=== PATIENT | female | born 1985 | race Caucasian/White ===

== ENCOUNTER 2016-06-04 18:18 | Emergency (ER) | payer OTHER ==
[~2016-06-04] VITALS: Ht 154.9 cm; Wt 79.4 kg
[~2016-06-04 18:18] MED LIST: No Home Medications
[2016-06-04 19:13] LABS: BASO % 0.6 % (0.0-1.0); EOS # 0.3 K/mm3 (0.0-0.50); LARGE UNSTAINED CELL # 0.2 K/mm3 (0.0-0.4); LYMPH # 2.9 K/mm3 (1.5-4.5); LYMPH % 32.4 % (24.0-44.0); MEAN CORPUSCULAR HEMOGLOBIN 31.6 pg (27.0-33.0); MEAN CORPUSCULAR HGB CONC 33.5 g/dl (32.0-36.5); MEAN CORPUSCULAR VOLUME 94.2 fl (80.0-96.0); MONO # 0.3 K/mm3 (0.0-0.8); MONO % 3.9 % (0.0-5.0); NEUTROPHILS # 4.8 K/mm3 (1.8-7.7); NEUTROPHILS % 57.1 % (36.0-66.0); PLATELET COUNT, AUTOMATED 347 k/mm3 (150-450); RED CELL DISTRIBUTION WIDTH 14.1 % (11.5-14.5); WHITE BLOOD COUNT 8.4 K/mm3 (4.0-10.0)
--- NOTE | 2016-06-04 21:10 | REPUSA ---
CLINICAL HISTORY: Bleeding. TECHNIQUE: Realtime sonographic images were obtained in multiple projections. COMMENTS: LMP: 04/27/2016; GA by LMP 5 weeks 3 days. The uterine size measures 8.0 cm in CC x 3.6 cm in AP x 4.5 cm in transverse. No gestational sac is seen. The right ovary measures 2.8 cm in CC x 1.6 cm in AP x 1.7 cm in transverse. The left ovary measures 2.7 cm in CC x 1.6 cm in AP x 1.7 cm in transverse. Both ovaries are free of masses. IMPRESSION No evidence of an IUP. Fibroid uterus. Thank you for your kind referral of this patient. We appreciate the opportunity to participate in thi s patient's care.
[2016-06-04 21:36] VITALS: BP 128/56
== END 2016-06-04 21:49 | disposition home or self-care (01) ==
LOC: M ED 19:24
DX: O20.0 Threatened abortion (principal); Z3A.01 Less than 8 weeks gestation of pregnancy

== ENCOUNTER → 2016-09-06 | Outpatient (CLI) | payer OTHER ==
[~2016-09-06] MED LIST changes: +ISOVUE-370 76% 100ML VIAL (Q9967) As Ordered ONE
--- NOTE | 2016-09-06 13:43 | REP ---
HYSTEROSALPINGOGRAM: The patient's cervix was catheterized and contrast was injected by the referring clinician. I performed fluoroscopy and obtained spot radiographs. Uterine cavity is free of filling defect. No contour abnormalities are seen. There is free passage of contrast through the right fallopian tube, which is not dilated. There is free intraperitoneal spillage on the right indicating patency of the right fallopian tube. However, the left fallopian tube is significantly dilated with no free intraperitoneal spillage on the left side. Findings are consistent with obstruction of the distal left fallopian tube with moderate to severe hydrosalpinx. IMPRESSION: Patent right fallopian tube. Obstructed left fallopian tube with moderate to severe left hydrosalpinx. 46 seconds fluoroscopy time utilized for the procedure. Signed by Gilles Lawson MD 09/06/2016 05:03 P
== END ==
LOC: M RADPRO 11:07
PROVIDERS: ATTEND Obstetrics & Gynecology
DX: N70.11 Chronic salpingitis (principal)
CPT/HCPCS: 58340; 74740; Q9967

== ENCOUNTER 2016-10-25 11:56 | Day surgery (SDC) | payer OTHER ==
[~2016-10-25] VITALS: Ht 185.4 cm; Wt 70.3 kg
[~2016-10-25 11:56] MED LIST changes: -ISOVUE-370 76% 100ML VIAL (Q9967) As Ordered ONE
[2016-10-25] MEDS ORDERED: LR 1,000 ML IV SCH ×4 (12:00→16:30)
[2016-10-25] MEDS ORDERED: LR 1,000 ML IV ONE (12:00)
[2016-10-25 12:20] LABS: MEAN CORPUSCULAR HEMOGLOBIN 31.5 pg (27.0-33.0); MEAN CORPUSCULAR HGB CONC 33.4 g/dl (32.0-36.5); MEAN CORPUSCULAR VOLUME 94.2 fl (80.0-96.0); WHITE BLOOD COUNT 7.4 K/mm3 (4.0-10.0)
[2016-10-25 12:43] LABS: CONTROL LINE HCG INT CTR LINE PRESENT
[2016-10-25] MEDS ORDERED: MIDAZOLAM INJ 2 MG/2 ML VIAL (J2250) As Ordered ONE (13:41)
[2016-10-25] MEDS ORDERED: fentaNYL 100 MCG/2 ML INJECTION (J3010) As Ordered ONE ×2 (13:41→14:45)
[2016-10-25] MEDS ORDERED: BUPIVACAINE HCL 0.5% 30 ML VIAL As Ordered ONE (14:39)
[2016-10-25] MEDS ORDERED: PROPOFOL 200 MG/20 ML VIAL As Ordered ONE (14:47)
[2016-10-25] MEDS ORDERED: LIDOCAINE 2% INJ 100 MG/5 ML SDV (FOR ANES.) As Ordered ONE (14:47)
[2016-10-25] MEDS ORDERED: dexameTHASONE 4 MG/ML 1ML VIAL (J1100) As Ordered ONE (14:47)
[2016-10-25] MEDS ORDERED: KETOROLAC 60 MG/2 ML VIAL (J1885) As Ordered ONE (14:47)
[2016-10-25] MEDS ORDERED: ONDANSETRON 4MG/2ML VIAL (J2405) As Ordered ONE (14:47)
[2016-10-25] MEDS ORDERED: ROCURONIUM BROMIDE 50 MG/5 ML VIAL/SYRINGE As Ordered ONE (14:47)
[2016-10-25] MEDS ORDERED: METHYLENE BLUE 0.5% (5MG/ML) 10 ML AMP (PROVAYBLUE)(Q9968 PER 1MG) As Ordered ONE (15:05)
[2016-10-25] MEDS ORDERED: SUGAMMADEX SODIUM 500 MG/5 ML VIAL (BRIDION) As Ordered ONE (15:29)
[2016-10-25] MEDS ORDERED: NORCO, ANEXSIA 5/325MG TABLET (HYDROcodone/ACETAMINOPHEN) As Ordered ONE (16:12)
[2016-10-25] MEDS ORDERED: fentaNYL 100 MCG/2 ML INJECTION (J3010) IV PRN ×2 (16:15→16:30)
[2016-10-25] MEDS ORDERED: ONDANSETRON 4MG/2ML VIAL (J2405) IV PRN ×2 (16:15→16:30)
[2016-10-25] MEDS ORDERED: NORCO, ANEXSIA 5/325MG TABLET (HYDROcodone/ACETAMINOPHEN) PO PRN (16:30)
[2016-10-25 17:33] VITALS: BP 147/69
--- NOTE | 2016-10-26 13:22 | RO ---
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 POSTPROCEDURE DIAGNOSIS: Left and right tubal disease. PROCEDURE: Diagnostic laparoscopy and failed chromotubation. SURGEON: Dr. Gilles Posey. MECHANICAL OXIDIZER: Dr. Malcolm Navarro. ANESTHESIA: General. ESTIMATED BLOOD LOSS: 8 mL. DRAINS: 400 mL with Hoyt catheter removed at the end of the case. FLUIDS: 1000 mL of lactated ringers. ANTIBIOTICS: None. SPECIMENS: None. FINDINGS: Unable to chromotubate, no obvious hydrosalpinx on the left, left test tube tethered to the side wall and blunted and swollen but did not meet criteria for a hydrosalpinx, right tube blunted and noted with normal appearance otherwise. INDICATION: Recurrent loss initially with also secondary fertility over the last few years and history of chlamydia. PROCEDURE: The patient was taken to the operating room with an IV in place and placed in the low lithotomy position after general endotracheal anesthesia was obtained. Exam under anesthesia was performed an was unremarkable. She was then prepped and draped in normal sterile fashion. Approximately 3 mL of 0.5% Marcaine was injected infraumbilically and a 5 mm incision was placed infraumbilically over the same area and the patient was flattened out and brought down to waist level. An OptiView 5 mm trocar was placed into the abdomen under direct visualization without difficulty. High flow CO2 started and pneumoperitoneum was easily obtained. A C-shaped uterine manipulator with a port to chromotubate was placed prior to the placement of the laparoscopic trocar without difficulty and with a tenaculum on the anterior lip of the cervix. Before proceeding to the afore mentioned first trocar, surgeon's gloves were changed. With the uterine manipulator, we were able to notice that there was no obvious hydrosalpinx present on either side and there seemed to be a small amount of scar tissue on and surrounding the left fallopian tube. However, without another port, it was difficult to ascertain the extent of the disease, therefore a right lower quadrant port was placed under direct visualization including Marcaine bath prior. With the grasper, we were able to evaluate the full extent of any and all present disease. The right fallopian tube was normal up until the fimbriated end at which point 80-90% of the fimbriated end was blunted and swollen. There was no hydrosalpinx noted on the right. On the left, the patient had a significant amount of scar tissue surrounding the fallopian tube. It was scarred to the left ovarian fossa and from what we could see of the end of the fallopian tube, there was no fimbria present and it was also blunted. We then attempted to chromotubate and no flow or significant fill was noted in either tube. A small amount of fill was noted on the left tube 2 cm proximal to the end of the tube but it was not significant. The inferior abdomen was normal in appearance and photo documentation of our findings was obtained. The decision was made to refer to dynamometer tester and infertility specialist for their determination for possible tubal reconstructive surgery versus salpingectomy and movement to In vitro fertilization. All counts were correct. All instruments were removed from the vagina with no significant bleeding noted and the patient tolerated the procedure well including wake up and transferred to postanesthesia care unit.
== END 2016-10-25 17:37 | disposition home or self-care (01) ==
LOC: M SDC 11:56
PROVIDERS: ATTEND Obstetrics & Gynecology
DX: N97.1 Female infertility of tubal origin (principal); N96 Recurrent pregnancy loss; Z86.19 Personal history of other infectious and parasitic diseases; Z88.5 Allergy status to narcotic agent; F17.210 Nicotine dependence, cigarettes, uncomplicated
CPT/HCPCS: 36415; 49320; 58350; 84703; 85027; 86850; 86900; 86901; J1100; J1885; J2250; J2405; J3010; Q9968

== ENCOUNTER 2016-12-01 12:46 | Emergency (ER) | payer OTHER ==
[~2016-12-01] VITALS: Ht 154.9 cm; Wt 72.7 kg
[2016-12-01] MEDS ORDERED: IBUP-1114 PO (12:53)
[2016-12-01] MEDS ORDERED: traMADol 50 MG TAB PO ONE (13:15)
[2016-12-01] MEDS ORDERED: ULTR50TA8 PO (13:38)
[2016-12-01] MEDS ORDERED: NAPR500T PO (13:39)
[2016-12-01 13:51] VITALS: BP 116/62
--- NOTE | 2016-12-01 14:00 | REP ---
LEFT KNEE SERIES: Five views. HISTORY: Trauma. FINDINGS: Five views of the left knee demonstrate a bone island in the proximal tibia. There is another in the distal femur. A normal fabella is seen. Bones, joints, and soft tissues are otherwise unremarkable. IMPRESSION: Negative left knee radiographs. Signed by Jadon Ford MD 12/01/2016 03:52 P
== END 2016-12-01 13:52 | disposition home or self-care (01) ==
LOC: M ED 12:46
DX: S80.02XA Contusion of left knee, initial encounter (principal); W01.0XXA Fall on same level from slipping, tripping and stumbling without subsequent striking against object, initial encounter; Y92.89 Other specified places as the place of occurrence of the external cause; Y93.9 Activity, unspecified; Y99.0 Civilian activity done for income or pay; R51 Headache; F17.200 Nicotine dependence, unspecified, uncomplicated; Z88.5 Allergy status to narcotic agent